=== PATIENT | female | born 1985 | race Caucasian/White ===

== ENCOUNTER 2017-04-27 10:11 | Day surgery (SDC) | payer SELFPAY, BC ==
[~2017-04-27 10:11] MED LIST: Acetaminophen/HYDROcodone 325-5 MG Tab PO PRN; Bupivacaine 0.25% 10 ML SDV ONE; Bupivacaine 0.25%/EPINEPHrine 1:200,000 10 ML SDV INJECT ONE; Bupivacaine 25%/EPINEPHrine/PF 30 ML ONE; EPINEPHrine 1 MG/ML SDV ONE; Gentamicin 40 MG/ML 2 ML Vial ONE; Lactated Ringers 1,000 ML IV SCH; ceFAZolin 1 GM Vial ONE; ceFAZolin 2 GM in Premix Bag 1 BAG IV ONE; fentaNYL 100 MCG/2 ML SDV IVPUSH PRN
[2017-04-27] MEDS ORDERED: Propofol 200 MG/20 ML SDV ONE (10:49)
[2017-04-27] MEDS ORDERED: fentaNYL 100 MCG/2 ML SDV ONE (10:49)
[2017-04-27] MEDS ORDERED: Ondansetron 4 MG/2 ML SDV ONE (10:49)
[2017-04-27] MEDS ORDERED: Lidocaine 2% 5 ML SDV ONE (10:49)
[2017-04-27] MEDS ORDERED: ceFAZolin 1 GM Vial ONE (10:50)
[2017-04-27] MEDS ORDERED: Sodium Chloride 0.9% 20 ML ONE (10:50)
[2017-04-27] MEDS ORDERED: Midazolam 1 MG/ML 2 ML SDV ONE (10:50)
--- NOTE | 2017-04-27 10:50 | PCM.PREANE ---
Preanesthetic Assessment - Anesthesia/Transfusion/Family Hx Anesthesia History: No Prior Anesthesia Family History of Anesthesia Reaction: No Transfusion History: No Prior Transfusion(s) Intubation History: Unknown - Review of Systems General: No Symptoms Pulmonary: No Symptoms Cardiovascular: No Symptoms Gastrointestinal: No Symptoms Neurological: No Symptoms Other: Reports: None - Physical Assessment Height: 1.57 m Weight: 53.977 kg ASA Class: 1 Mental Status: Alert & Oriented x3 Airway Class: Mallampati = 1 Dentition: Reports: Normal Dentition Thyro-Mental Finger Breadths: 3 Mouth Opening Finger Breadths: 3 ROM/Head Extension: Full Lungs: Clear to Auscultation, Normal Respiratory Effort Cardiovascular: Regular Rate, Regular Rhythm - Lab Values: Laboratory Last Values Urine HCG, Qual NEGATIVE (NEGATIVE) 04/27/17 10:14 - Allergies Allergies/Adverse Reactions: Allergies Allergy/AdvReac Type Severity Reaction Status Date / Time No Known Allergies Allergy Verified 04/22/17 16:01 - Blood Blood Available: No - Anesthesia Plan Pre-Op Medication Ordered: None - Acknowledgements Anesthesia Type Planned: General Anesthesia Pt an Appropriate Candidate for the Planned Anesthesia: Yes Alternatives and Risks of Anesthesia Discussed w Pt/Guardian: Yes Pt/Guardian Understands and Agrees with Anesthesia Plan: Yes PreAnesthesia Questionnaire - Past Health History Medical/Surgical History: Denies Medical/Surgical History HEENT History: Reports: Impaired Vision Other HEENT History: wears glasses/contacts Genitourinary History: Reports: STD ANALYSIS ENGINEER History: Reports: - SUBSTANCE USE Smoking Status *Q: Never Smoker Days Per Week of Alcohol Use: 0 Recreational Drug Use History: No - HOME MEDS Home Medications: Home Meds . [No Known Home Meds] 04/22/17 [History] - CURRENT (IN HOUSE) MEDS Current Meds: Current Medications Hydrocodone Bitart/Acetaminophen (Freehold 325-5 Mg) 1 tab PO Q4H PRN PRN Reason: Pain Fentanyl (Sublimaze) 50 mcg IVPUSH Q5M PRN PRN Reason: Pain (severe 7-10) Stop: 04/28/17 08:39 Lactated Ringer's (Ringers, Lactated) 1,000 mls @ 125 mls/hr IV ASDIRECTED PAUL Last Admin: 04/27/17 10:48 Dose: 125 mls/hr Discontinued Medications Bacitracin (Bacitracin) Confirm Administered Dose 50,000 units .ROUTE .STK-MED ONE Stop: 04/27/17 07:22 Bupivacaine HCl (Sensorcaine-Mpf 0.25%) Confirm Administered Dose 10 ml .ROUTE .STK-MED ONE Stop: 04/27/17 07:22 Bupivacaine HCl/Epinephrine Bitart (Marcaine 0.25%/Epinephrine 1:200,000) 30 ml INJECT ONETIME ONE Stop: 04/26/17 17:19 Cefazolin Sodium (Ancef) Confirm Administered Dose 1 gm .ROUTE .STK-MED ONE Stop: 04/27/17 07:22 Epinephrine HCl (Adrenalin) Confirm Administered Dose 1 mg .ROUTE .STK-MED ONE Stop: 04/27/17 07:22 Gentamicin Sulfate (Gentamicin) Confirm Administered Dose 80 mg .ROUTE .STK-MED ONE Stop: 04/27/17 07:22 Cefazolin Sodium/Dextrose 2 gm (/ Premix) 50 mls @ 100 mls/hr IV ONETIME ONE Stop: 04/26/17 17:47 Bupivacaine HCl/Epinephrine Bitart (Sensorc Mpf 0.25%-Epi 1:[id number]) Confirm Administered Dose 30 mls @ as directed .ROUTE .STK-MED ONE Stop: 04/27/17 07:22
[2017-04-27] MEDS ORDERED: ePHEDrine 50 MG/ML SDV ONE (11:46)
--- NOTE | 2017-04-27 13:38 | PCM.POSTAN ---
POST ANESTHESIA ASSESSMENT - MENTAL STATUS Mental Status: Alert, Oriented - RESPIRATORY Respiratory Status: Respiratory Rate WNL, Airway Patent, O2 Saturation Stable, Supplemental Oxygen Free Text/Narrative:: NC 2 L - CARDIOVASCULAR CV Status: Pulse Rate WNL, Blood Pressure Stable - GASTROINTESTINAL GI Status: No Symptoms - PAIN Pain Score: 3 - POST OP HYDRATION Hydration Status: Adequate & Stable
[2017-04-27 15:15] VITALS: BP 122/69
--- NOTE | 2017-04-27 15:50 | PCM48HPAN ---
Post Anesthesia Note - EVALUATION WITHIN 48HRS OF ANESTHETIC Vital Signs in Normal Range: Yes Patient Participated in Evaluation: Yes Respiratory Function Stable: Yes Airway Patent: Yes Cardiovascular Function Stable: Yes Hydration Status Stable: Yes Pain Control Satisfactory: Yes Nausea and Vomiting Control Satisfactory: Yes Mental Status Recovered: Yes
--- NOTE | 2017-04-28 15:34 | PCM.OPNOTE ---
- General Post-Op/Procedure Note Date of Surgery/Procedure: 04/27/17 Operative Procedure(s): bilateral breast augmentation - silicone submuscular Pre Op Diagnosis: cosmetic Post-Op Diagnosis: Same Anesthesia Technique: General ET Tube, Local Primary Surgeon: Deanna Mcgregor Electronic Imager: Adriane Lovelace Reason Electronic Imager Was Necessary: retraction and closure assistance Complications: None Condition: Good
--- NOTE | 2017-04-28 21:18 | OR ---
SURGEON: JACQUELIN KEBEDE MD DATE OF PROCEDURE: 04/27/2017 PREOPERATIVE DIAGNOSIS: Cosmetic. POSTOPERATIVE DIAGNOSIS: Cosmetic. PROCEDURE: Bilateral submuscular breast augmentation with silicone implant. IMPLANT: Serial number on the left is [id number]. Reference number [id number]. Serial number on the right is [id number]. Reference number [id number]. GROUP LEADER SEMICONDUCTOR PROCESSING: MOHSEN Mejía. Reason for recruitment and outreach assistant was retraction and closure assistance. ANESTHESIA: General ET tube with local. INDICATIONS: Ms. Garcia is a 31-year-old female seen today in evaluation for bilateral breast augmentation. Risks and benefits were discussed with her including, but not limited to, bleeding, infection, damage to underlying or overlying structures, possible need for future interventions, and possible scarring. She would like to proceed. PROCEDURE IN DETAIL: After informed consent was obtained and placed on the chart, the patient was brought to the operating theater and laid in the supine position. After adequate general anesthesia was obtained, the area was prepped and draped and a time-out was completed to confirm side and site. Once adequately confirmed, the area was appropriately marked with incisions lateral to the nipple-areolar complex measuring 4 cm. This was placed at the base with distance of the planned implant. Once marked, the area was infiltrated with local anesthesia, 0.25% Marcaine with epinephrine in a field block of the area. Attention was then paid to dissection using a 15 blade through the skin and subcutaneous tissues and Bovie electrocautery to localize the edge of the pectoralis muscle. Once localized, the pectoralis muscle was elevated and the inferior edge was transected. Meticulous hemostasis was obtained and the area was copiously irrigated. Epinephrine-soaked laps were then placed in the pocket for meticulous hemostasis and symmetric dissection was completed on the opposite side. Once adequately completed, attention was then paid to the right breast again and the epinephrine-soaked laps were removed and appropriately accounted for. Attention was then paid to 3-0 PDS sutures along the inframammary fold and the lateral aspect of the pocket to ensure position. Once this was completed, the area was again copiously irrigated and antibiotic solution was irrigated into the area. The Cullen funnel was then used to place the 310 mL implants using a no-touch technique into bilateral pocket after symmetric preparation. Once adequately placed, the patient was sat up into the supine position and symmetry was appreciated. She was laid back into the supine position and closure was undertaken using deep 3-0 Monocryl stitches for the fascia, deep 3-0 for the dermis, and a running 4-0 subcuticular for the skin. The wounds were dressed with Steri-Strips and she was placed with fluffs and a compression bra. The patient tolerated this well and all counts and needles were correct at the end of the case. FOLLOWUP INSTRUCTIONS: The patient was given a prescription for pain control and will see us in clinic tomorrow or sooner if any problems, questions, or concerns. HEGGTHE / REMY /[id number]
== END 2017-04-27 15:30 | disposition home or self-care (01) ==
LOC: MW.SDS 10:11
PROVIDERS: ATTEND Plastic Surgery
DX: Z41.1 Encounter for cosmetic surgery (principal); D22.9 Melanocytic nevi, unspecified; Z87.891 Personal history of nicotine dependence
CPT/HCPCS: 19325; 81025; A9270; J0171; J0690; J1580; J2250; J2405; J3010; J7120; 00402; C1789; J2704

== ENCOUNTER 2018-05-26 06:26 | Day surgery (SDC) | payer BC ==
[~2018-05-26 06:26] MED LIST changes: -Acetaminophen/HYDROcodone 325-5 MG Tab PO PRN; -Bupivacaine 0.25% 10 ML SDV ONE; -Bupivacaine 0.25%/EPINEPHrine 1:200,000 10 ML SDV INJECT ONE; -Bupivacaine 25%/EPINEPHrine/PF 30 ML ONE; -EPINEPHrine 1 MG/ML SDV ONE; -Gentamicin 40 MG/ML 2 ML Vial ONE; -ceFAZolin 1 GM Vial ONE; +ceFAZolin 1 GM in Premix Bag 1 BAG IV ONE; -ceFAZolin 2 GM in Premix Bag 1 BAG IV ONE; -fentaNYL 100 MCG/2 ML SDV IVPUSH PRN
--- NOTE | 2018-05-26 07:26 | PCM.PREANE ---
Preanesthetic Assessment - Anesthesia/Transfusion/Family Hx Anesthesia History: Prior Anesthesia Without Reaction Family History of Anesthesia Reaction: No Transfusion History: No Prior Transfusion(s) Intubation History: Unknown - Review of Systems General: No Symptoms Pulmonary: No Symptoms Cardiovascular: No Symptoms Gastrointestinal: No Symptoms Neurological: No Symptoms Other: Reports: None - Physical Assessment NPO Status Date: 05/25/18 Height: 5 ft 2 in Weight: 55.338 kg ASA Class: 1 Mental Status: Alert & Oriented x3 Airway Class: Mallampati = 1 Dentition: Reports: Normal Dentition ROM/Head Extension: Full Lungs: Clear to Auscultation, Normal Respiratory Effort Cardiovascular: Regular Rate, Regular Rhythm - Allergies Allergies/Adverse Reactions: Allergies Allergy/AdvReac Type Severity Reaction Status Date / Time No Known Allergies Allergy Verified 05/23/18 14:26 - Blood Blood Available: No - Anesthesia Plan Pre-Op Medication Ordered: None - Acknowledgements Anesthesia Type Planned: General Anesthesia Pt an Appropriate Candidate for the Planned Anesthesia: Yes Alternatives and Risks of Anesthesia Discussed w Pt/Guardian: Yes Pt/Guardian Understands and Agrees with Anesthesia Plan: Yes Additional Comments: PMH: none PLAN: GA-LMA PreAnesthesia Questionnaire - Past Health History Medical/Surgical History: Denies Medical/Surgical History HEENT History: Reports: Other (See Below) Other HEENT History: wears glasses/contacts Cardiovascular History: Reports: None Respiratory History: Reports: None Gastrointestinal History: Reports: None Genitourinary History: Reports: None EDUCATIONAL 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: Reports: None Musculoskeletal History: Reports: None Neurological History: Reports: None Psychiatric History: Reports: None Endocrine/Metabolic History: Reports: None Hematologic History: Reports: None Immunologic History: Reports: None Oncologic (Cancer) History: Reports: None Dermatologic History: Reports: Other (See Below) Other Dermatologic History: frequent cold sores - Past Surgical History Head Surgeries/Procedures: Reports: None Female Surgical History: Reports: Breast Implant - SUBSTANCE USE Smoking Status *Q: Never Smoker Recreational Drug Use History: No - HOME MEDS Home Medications: Home Meds valACYclovir HCl [valACYclovir] 2,000 mg PO BID PRN 05/23/18 [History] - CURRENT (IN HOUSE) MEDS Current Meds: Current Medications Lactated Ringer's (Ringers, Lactated) 1,000 mls @ 125 mls/hr IV ASDIRECTED PAUL Discontinued Medications Cefazolin Sodium/Dextrose 1 gm (/ Premix) 50 mls @ 100 mls/hr IV ONETIME ONE Stop: 05/26/18 06:29
[2018-05-26] MEDS ORDERED: Propofol 200 MG/20 ML SDV ONE (07:32)
[2018-05-26] MEDS ORDERED: Lidocaine 2% 5 ML SDV ONE (07:32)
[2018-05-26] MEDS ORDERED: Midazolam 1 MG/ML 2 ML SDV ONE (07:33)
[2018-05-26] MEDS ORDERED: fentaNYL 100 MCG/2 ML SDV ONE (07:33)
[2018-05-26] MEDS ORDERED: ceFAZolin 1 GM Vial ONE (07:34)
[2018-05-26] MEDS ORDERED: Bupivacaine 0.5% 10 ML SDV ONE (07:34)
[2018-05-26] MEDS ORDERED: HYDROmorphone 2 MG/ML Syringe ONE (08:20)
[2018-05-26] MEDS ORDERED: Ondansetron 4 MG/2 ML SDV ONE (08:33)
[2018-05-26] MEDS ORDERED: Ketorolac 30 MG/ML SDV ONE (08:33)
[2018-05-26] MEDS ORDERED: Meperidine PF 25 MG/ML Syringe IV PRN (08:37)
[2018-05-26] MEDS ORDERED: fentaNYL 100 MCG/2 ML SDV IVPUSH PRN (08:37)
[2018-05-26] MEDS ORDERED: Morphine 10 MG/ML Syringe IVPUSH PRN (09:01)
[2018-05-26] MEDS ORDERED: Acetaminophen/HYDROcodone 325-5 MG Tab PO PRN (09:01)
[2018-05-26] MEDS ORDERED: Ondansetron 4 MG/2 ML SDV IVPUSH PRN (09:01)
--- NOTE | 2018-05-26 09:06 | PCM.OPNOTE ---
- General Post-Op/Procedure Note Date of Surgery/Procedure: 05/26/18 Operative Procedure(s): Repair left inguinal hernia Pre Op Diagnosis: Left femoral hernia Post-Op Diagnosis: Left inguinal hernia Anesthesia Technique: General LMA (ASA I) Primary Surgeon: Michael Mantilla Fluid Replacement, Intraop: 700 EBL in mLs: 10 Condition: Good Free Text/Narrative:: DICTATION [id number] CPT CODE 77895
[2018-05-26] MEDS ORDERED: Lactated Ringers 1,000 ML IV SCH (09:15)
--- NOTE | 2018-05-26 09:27 | PCM.POSTAN ---
POST ANESTHESIA ASSESSMENT - MENTAL STATUS Mental Status: Alert, Oriented - RESPIRATORY Respiratory Status: Respiratory Rate WNL, Airway Patent, O2 Saturation Stable - CARDIOVASCULAR CV Status: Pulse Rate WNL, Blood Pressure Stable - GASTROINTESTINAL GI Status: No Symptoms - POST OP HYDRATION Hydration Status: Adequate & Stable
--- NOTE | 2018-05-26 10:24 | PCM48HPAN ---
Post Anesthesia Note - EVALUATION WITHIN 48HRS OF ANESTHETIC Vital Signs in Normal Range: Yes Patient Participated in Evaluation: Yes Respiratory Function Stable: Yes Airway Patent: Yes Cardiovascular Function Stable: Yes Hydration Status Stable: Yes Pain Control Satisfactory: Yes Nausea and Vomiting Control Satisfactory: Yes Mental Status Recovered: Yes Resp Rate: 10
[2018-05-26 10:35] VITALS: BP 130/77
--- NOTE | 2018-05-26 11:45 | OR ---
SURGEON: Michael Mantilla M.D. DATE OF PROCEDURE: 05/26/2018 OPERATION PERFORMED: Repair of left inguinal hernia. ANESTHESIA: General LMA ASA CLASSIFICATION: I. PREOPERATIVE DIAGNOSIS: Left groin hernia. POSTOPERATIVE DIAGNOSIS: Left indirect inguinal hernia. ESTIMATED BLOOD LOSS: 10 mL. INTRAOPERATIVE FLUID REPLACEMENT: 700 mL of crystalloid. DESCRIPTION OF PROCEDURE: The patient was taken to the operating room and placed the operating table in the supine position. Time-out was called for appropriate identification of the patient and procedure. The surgical site had been marked prior to the patient entering the operating room. Following satisfactory attainment of general anesthesia with placement of an LMA, the abdomen was prepped with DuraPrep solution. Sterile drapes were applied. The skin incision was marked out in the left inguinal crease and then the skin was infiltrated with 0.5% Marcaine solution. The skin incision was made and deepened through the subcutaneous tissue obtaining hemostasis with the use of electrocautery. Dissection was carried down to the external oblique fascia, which was opened in the direction of its fibers. The inguinal region was carefully inspected and one could find an indirect sac. The sac was then mobilized and opened to make sure there were no intraabdominal contents. Once that was accomplished, ligation of the sac was carried out with a 2-0 silk suture. The excess sac was excised and the stump allowed to retract. The wound was then inspected for hemostasis, no other bleeding sites were electrocoagulated. Further dissection did not reveal a femoral hernia and this turned out to just be an inguinal hernia. Once the sac had been highly ligated, the floor was reapproximated approximating the transversalis fascia medially to Jackson's ligament inferiorly and transitioning to the inguinal ligament as we moved laterally. Once all sutures were placed and tied, the patient was given a Valsalva maneuver. There was no obvious recurrence of the hernia. The wound was inspected for hemostasis and bleeding sites were electrocoagulated. The wound was irrigated with sterile saline solution. The external oblique fascia was reapproximated with 3-0 Vicryl. Vanna's fascia was reapproximated with 3-0 Vicryl and the skin edges were reapproximated with subcuticular 4-0 Monocryl, reinforced with Steri-Strips. Sterile Tegaderm pad was placed as a dressing. Sponge, needle, and instrument counts were all correct. The patient tolerated the procedure well. Following emergence from Anesthesia and extubation, she was taken to recovery room in satisfactory condition. Please also note that at the outset of the procedure, thigh-high TEDs and sequential compression boots have been placed. MARYJANE / REMY /[id number]
== END 2018-05-26 11:30 | disposition home or self-care (01) ==
LOC: MW.SDS 06:26
PROVIDERS: ATTEND Surgery
DX: K40.90 Unilateral inguinal hernia, without obstruction or gangrene, not specified as recurrent (principal); Z79.899 Other long term (current) drug therapy
CPT/HCPCS: 49505; 81025; J0690; J1170; J1885; J2250; J2405; J2704; J3010; J3490; J7120; 88302

== ENCOUNTER 2019-06-29 06:50 | Day surgery (SDC) | payer BC ==
[~2019-06-29 06:50] MED LIST changes: -Lactated Ringers 1,000 ML IV SCH; +Sodium Chloride 0.9% 10 ML SDV IV PRN; +Sodium Chloride 0.9% 10 ML Syringe FLUSH PRN; +Sodium Chloride 0.9% 2.5 ML Syringe FLUSH PRN; -ceFAZolin 1 GM in Premix Bag 1 BAG IV ONE
--- NOTE | 2019-06-29 07:35 | PCM.PREANE ---
Preanesthetic Assessment - Anesthesia/Transfusion/Family Hx Anesthesia History: Prior Anesthesia Without Reaction Family History of Anesthesia Reaction: No Transfusion History: No Prior Transfusion(s) Intubation History: Unknown - Review of Systems General: No Symptoms Pulmonary: No Symptoms Cardiovascular: No Symptoms Gastrointestinal: No Symptoms Neurological: No Symptoms Other: Reports: None - Physical Assessment Vital Signs: Last Vital Signs Temp 36.2 C 06/29/19 07:03 Pulse 80 06/29/19 07:03 Resp 14 06/29/19 07:03 BP Pulse Ox 98 06/29/19 07:03 Height: 5 ft 2.25 in Weight: 58.967 kg ASA Class: 1 Mental Status: Alert & Oriented x3 Airway Class: Mallampati = 1 Dentition: Reports: Normal Dentition Thyro-Mental Finger Breadths: 3 Mouth Opening Finger Breadths: 2 ROM/Head Extension: Full Lungs: Clear to Auscultation, Normal Respiratory Effort Cardiovascular: Regular Rate, Regular Rhythm - Lab Values: Laboratory Last Values WBC 5.07 K/uL (4.0-11.0) 06/29/19 07:06 RBC 4.84 M/uL (4.30-5.90) 06/29/19 07:06 Hgb 14.0 g/dL (12.0-16.0) 06/29/19 07:06 Hct 41.5 % (36.0-46.0) 06/29/19 07:06 MCV 85.7 fL (80.0-98.0) 06/29/19 07:06 MCH 28.9 pg (27.0-32.0) 06/29/19 07:06 MCHC 33.7 g/dL (31.0-37.0) 06/29/19 07:06 RDW Std Deviation 38.9 fl (28.0-62.0) 06/29/19 07:06 RDW Coeff of Miri 12 % (11.0-15.0) 06/29/19 07:06 Plt Count 223 K/uL (150-400) 06/29/19 07:06 MPV 10.20 fL (7.40-12.00) 06/29/19 07:06 Nucleated RBC % 0.0 /100WBC 06/29/19 07:06 Nucleated RBCs # 0 K/uL 06/29/19 07:06 HCG, Qual NEGATIVE (NEG) 06/29/19 07:06 - Allergies Allergies/Adverse Reactions: Allergies Allergy/AdvReac Type Severity Reaction Status Date / Time No Known Allergies Allergy Verified 06/29/19 07:23 - Blood Blood Available: No - Anesthesia Plan Pre-Op Medication Ordered: None - Acknowledgements Anesthesia Type Planned: MAC Pt an Appropriate Candidate for the Planned Anesthesia: Yes Alternatives and Risks of Anesthesia Discussed w Pt/Guardian: Yes Pt/Guardian Understands and Agrees with Anesthesia Plan: Yes PreAnesthesia Questionnaire - Past Health History Medical/Surgical History: Denies Medical/Surgical History HEENT History: Reports: Other (See Below) Other HEENT History: wears glasses/contacts Cardiovascular History: Reports: None Respiratory History: Reports: None Gastrointestinal History: Reports: None Genitourinary History: Reports: None 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: Musculoskeletal History: Reports: None Neurological History: Reports: None Psychiatric History: Reports: None Endocrine/Metabolic History: Reports: None Hematologic History: Reports: None Immunologic History: Reports: None Oncologic (Cancer) History: Reports: None Dermatologic History: Reports: Other (See Below) Other Dermatologic History: frequent cold sores in the winter - Past Surgical History Head Surgeries/Procedures: Reports: None HEENT Surgical History: Reports: None Cardiovascular Surgical History: Reports: None Respiratory Surgical History: Reports: None GI Surgical History: Reports: Hernia, Inguinal (left 05/27) Female Surgical History: Reports: Breast Implant Endocrine Surgical History: Reports: None Neurological Surgical History: Reports: None Oncologic Surgical History: Reports: None Dermatological Surgical History: Reports: None - SUBSTANCE USE Smoking Status *Q: Never Smoker Recreational Drug Use History: No - HOME MEDS Home Medications: Home Meds valACYclovir HCl [valACYclovir] 1,000 mg PO DAILY PRN 05/23/18 [History] Levonorgestrel-Ethin Estradiol [Introvale 0.15-0.03 mg Tablet] 1 tab PO DAILY [History] Multivitamin [Multivitamins] 1 tab PO DAILY 06/25/19 [History] - CURRENT (IN HOUSE) MEDS Current Meds: Current Medications Sodium Chloride (Saline Flush) 10 ml FLUSH ASDIRECTED PRN PRN Reason: Keep Vein Open Sodium Chloride (Saline Flush) 2.5 ml FLUSH ASDIRECTED PRN PRN Reason: Keep Vein Open Sodium Chloride (Normal Saline) 10 ml IV ASDIRECTED PRN PRN Reason: IV Use
[2019-06-29] MEDS ORDERED: Lidocaine 2% 5 ML SDV ONE (07:38)
[2019-06-29] MEDS ORDERED: Ketamine 500 mg/10 ML MDV ONE (07:39)
[2019-06-29] MEDS ORDERED: Midazolam 1 MG/ML 2 ML SDV ONE (07:39)
[2019-06-29] MEDS ORDERED: Ondansetron 4 MG/2 ML SDV ONE (07:39)
[2019-06-29] MEDS ORDERED: fentaNYL 100 MCG/2 ML SDV ONE (07:39)
[2019-06-29] MEDS ORDERED: Propofol 200 MG/20 ML SDV ONE (07:39)
[2019-06-29] MEDS ORDERED: Ketorolac 30 MG/ML SDV ONE (08:37)
--- NOTE | 2019-06-29 09:13 | PCM.OPNOTE ---
- General Post-Op/Procedure Note Date of Surgery/Procedure: 06/29/19 Operative Procedure(s): LEEP of cervix Findings: REUBEN 2 of endocervix Pre Op Diagnosis: Moderate endocervical dysplasia Post-Op Diagnosis: Same Anesthesia Technique: Local, MAC Primary Surgeon: Yennifer Guo Pathology: cervix, endocervix, endocervical curretings (done before hat) Fluid Replacement, Intraop: 800 EBL in mLs: 5 Complications: none known Condition: Stable Free Text/Narrative:: Intake & Output 06/28/19 06/29/19 06/29/19 22:59 06:59 14:59 Intake Total 950 Balance 950 Dictation [id number]
--- NOTE | 2019-06-29 09:23 | PCM.POSTAN ---
POST ANESTHESIA ASSESSMENT - MENTAL STATUS Mental Status: Alert, Oriented - VITAL SIGNS Vital Signs: Last Vital Signs Temp 97.5 F 06/29/19 09:10 Pulse 98 06/29/19 09:10 Resp 14 06/29/19 09:10 BP 133/82 06/29/19 09:10 Pulse Ox 98 06/29/19 09:10 - RESPIRATORY Respiratory Status: Respiratory Rate WNL, Airway Patent, O2 Saturation Stable - CARDIOVASCULAR CV Status: Pulse Rate WNL, Blood Pressure Stable - GASTROINTESTINAL GI Status: No Symptoms - PAIN Pain Score: 0 - POST OP HYDRATION Hydration Status: Adequate & Stable - OBSERVATIONS Free Text/Narrative:: Pt stable for tx to phase II recovery.
--- NOTE | 2019-06-29 09:41 | PCM48HPAN ---
Post Anesthesia Note - EVALUATION WITHIN 48HRS OF ANESTHETIC Vital Signs in Normal Range: Yes Patient Participated in Evaluation: Yes Respiratory Function Stable: Yes Airway Patent: Yes Cardiovascular Function Stable: Yes Hydration Status Stable: Yes Pain Control Satisfactory: Yes Nausea and Vomiting Control Satisfactory: Yes Mental Status Recovered: Yes Vital Signs: Last Vital Signs Temp 97.5 F 06/29/19 09:10 Pulse 92 06/29/19 09:25 Resp 14 06/29/19 09:25 BP 129/80 06/29/19 09:25 Pulse Ox 98 06/29/19 09:25 - COMMENTS/OBSERVATIONS Free Text/Narrative:: No apparent anesthesia complications.
[2019-06-29 10:29] VITALS: BP 128/74; PULSE 89
--- NOTE | 2019-06-29 13:31 | OR ---
SURGEON: Yennifer Guo M.D. DATE OF PROCEDURE: 06/29/2019 PREOPERATIVE DIAGNOSIS: Cervical intraepithelial neoplasia 2 of endocervix. POSTOPERATIVE DIAGNOSIS: Cervical intraepithelial neoplasia 2 of endocervix. PROCEDURE: Loop electrosurgical excision procedure of cervix, endocervix. PRIMARY SURGEON: Yennifer Guo MD. ANESTHESIA: MAC with local. ESTIMATED BLOOD LOSS: 5 mL. COMPLICATIONS: None known. FLUIDS: 800 mL of crystalloid. DISPOSITION: The patient to PACU, stable. PROCEDURE DETAILS: Maren is a 33-year-old female who recently had an LGSIL Pap. Colposcopy was performed and biopsy revealed REUBEN 2 of endocervix. Therefore, I have advised further management and intervention with LEEP. Risks of procedure have been discussed. Proper consent obtained. The patient was taken to the operating room where she underwent MAC anesthetic, was placed in modified dorsolithotomy position, was prepped and draped in usual fashion. A time-out was performed. A coated speculum was introduced in the vagina, as well as sidewall retractor. Cervix was prepped with Lugol's solution, and then 1% lidocaine with epinephrine was infiltrated in cervical block. Using a 20 x 8 mm loop, a single pass excision of the cervix was performed, followed by endocervical curettings and a 5 mm endocervical hat. Wound bed was now cauterized with rollerball, and Monsel's was placed. Hemostasis appeared evident. The patient tolerated procedure well overall. Instrument and sponge count was correct. The patient will go to PACU in stable condition, specimen to pathology. All instruments were removed from the vagina. FLORA / REMY /[id number]
== END 2019-06-29 09:55 | disposition home or self-care (01) ==
LOC: MW.SDS 06:50
PROVIDERS: ATTEND Obstetrics & Gynecology
DX: D06.0 Carcinoma in situ of endocervix (principal); A63.0 Anogenital (venereal) warts; Z79.899 Other long term (current) drug therapy; Z98.890 Other specified postprocedural states; Z87.42 Personal history of other diseases of the female genital tract
CPT/HCPCS: 36415; 57522; 84703; 85027; 88305; 88307; J1885; J2001; J2250; J2405; J2704; J3010; 00940